=== PATIENT | female | born 1990 | race Caucasian/White ===

== ENCOUNTER 2019-06-18 18:18 | Inpatient (IN) | payer MEDICAID, OTHER ==
[2019-06-18] MEDS ORDERED: SODIUM CHLORIDE 0.9% 1,000 ML IV STA (18:36)
--- NOTE | 2019-06-18 18:46 | ED ---
Overdose HPI - General Chief Complaint: Overdose Stated Complaint: Suicidal Time Seen by Provider: 06/18/19 18:20 - History of Present Illness Initial Comments: 29-year-old female patient with past medical history significant for anorexia nervosa presents to the emergency department today for evaluation after overdosing on several of her medications. Patient states she intentionally took these medications because she wanted to "feel numb". Patient does admit to suicidal ideation. Patient denies drinking alcohol. Admits to occasionally smoking marijuana. She states she is currently feeling nauseated and has a headache. She denies any other injuries or symptoms. Patient states she has been admitted to a mental health facility in the past, but for her eating disorder. Patient denies any recent rash, fever, chills, cough, shortness of breath, chest pain, abdominal pain, diarrhea, constipation, back pain, numbness, tingling, dizziness, weakness, hematuria, dysuria, urinary urgency, urinary frequency, visual changes, or any other complaints. - Related Data Allergies Allergy/AdvReac Type Severity Reaction Status Date / Time yeast, dried Allergy Rash/Hives Verified 06/18/19 19:12 Review of Systems ROS Statement: Those systems with pertinent positive or pertinent negative responses have been documented in the HPI. ROS Other: All systems not noted in ROS Statement are negative. General Exam General appearance: alert, in no apparent distress, other (This is a well- developed, well-nourished adult female patient in no acute distress. ) Eye exam: Present: normal appearance, PERRL, EOMI. Absent: scleral icterus, conjunctival injection, periorbital swelling ENT exam: Present: normal exam, normal oropharynx, mucous membranes moist Respiratory exam: Present: normal lung sounds bilaterally. Absent: respiratory distress, wheezes, rales, rhonchi, stridor Cardiovascular Exam: Present: regular rate, normal rhythm, normal heart sounds. Absent: systolic murmur, diastolic murmur, rubs, gallop, clicks GI/Abdominal exam: Present: soft, normal bowel sounds. Absent: distended, tenderness, guarding, rebound, rigid Neurological exam: Present: alert, oriented X3, CN II-XII intact Psychiatric exam: Present: anxious, suicidal ideation, other (Tearful). Absent: homicidal ideation Skin exam: Present: warm, dry, intact, normal color. Absent: rash Course Vital Signs 06/18/19 06/18/19 06/18/19 18:30 19:31 20:54 Temperature 98.1 F Pulse Rate 86 85 87 Respiratory 20 16 16 Rate Blood Pressure 125/74 105/68 103/60 O2 Sat by Pulse 98 98 98 Oximetry Medical Decision Making - Medical Decision Making 29-year-old female patient presented to the emergency department after taking several doses of each of her medications in attempt to kill herself. Physical examination is unremarkable. She is neurologically intact with no deficits. EKG showed normal sinus rhythm, with the controls contacted they recommended repeating EKG in 2-3 hours. Repeat EKG was normal as well. She was evaluated by emergency psychiatric services. She'll be transferred to the mental health unit for further evaluation and treatment. - Lab Data Result diagrams: 06/18/19 19:00 06/18/19 19:00 Lab Results 06/18/19 06/18/19 06/18/19 Range/Units 19:00 19:00 19:06 WBC 8.6 (3.8-10.6) k/uL RBC 4.96 (3.80-5.40) m/uL Hgb 14.3 (11.4-16.0) gm/dL Hct 44.4 (34.0-46.0) % MCV 89.5 (80.0-100.0) fL MCH 28.9 (25.0-35.0) pg MCHC 32.3 (31.0-37.0) g/dL RDW 14.2 (11.5-15.5) % Plt Count 412 (150-450) k/uL Neutrophils % 58 % Lymphocytes % 34 % Monocytes % 4 % Eosinophils % 2 % Basophils % 1 % Neutrophils # 5.0 (1.3-7.7) k/uL Lymphocytes # 2.9 (1.0-4.8) k/uL Monocytes # 0.3 (0-1.0) k/uL Eosinophils # 0.2 (0-0.7) k/uL Basophils # 0.1 (0-0.2) k/uL Sodium 139 (137-145) mmol/L Potassium 4.2 (3.5-5.1) mmol/L Chloride 106 (98-107) mmol/L Carbon Dioxide 26 (22-30) mmol/L Anion Gap 7 mmol/L BUN 11 (7-17) mg/dL Creatinine 0.84 (0.52-1.04) mg/dL Est GFR (CKD-EPI)AfAm >90 (>60 ml/min/1.73 sqM) Est GFR (CKD-EPI)NonAf >90 (>60 ml/min/1.73 sqM) Glucose 88 (74-99) mg/dL Calcium 9.1 (8.4-10.2) mg/dL Total Bilirubin 0.2 (0.2-1.3) mg/dL AST 30 (14-36) U/L ALT 23 (4-34) U/L Alkaline Phosphatase 99 (38-126) U/L Total Protein 7.5 (6.3-8.2) g/dL Albumin 4.2 (3.5-5.0) g/dL Urine Color Yellow Urine Appearance Cloudy H (Clear) Urine pH 7.0 (5.0-8.0) Ur Specific [place] 1.007 (1.001-1.035) Urine Protein Negative (Negative) Urine Glucose (UA) Negative (Negative) Urine Ketones Negative (Negative) Urine Blood Negative (Negative) Urine Nitrite Negative (Negative) Urine Bilirubin Negative (Negative) Urine Urobilinogen <2.0 (<2.0) mg/dL Ur Leukocyte Esterase Large H (Negative) Urine RBC 2 (0-5) /hpf Urine WBC 55 H (0-5) /hpf Ur Squamous Epith Cells 10 H (0-4) /hpf Urine Bacteria Many H (None) /hpf Urine Mucus Occasional H (None) /hpf Urine HCG, Qual (Not Detectd) Salicylates <1.0 mg/dL Urine Opiates Screen Not Detected (NotDetected) Ur Oxycodone Screen Not Detected (NotDetected) Urine Methadone Screen Not Detected (NotDetected) Ur Propoxyphene Screen Not Detected (NotDetected) Acetaminophen <10.0 ug/mL Ur Barbiturates Screen Not Detected (NotDetected) U Tricyclic Antidepress Not Detected (NotDetected) Ur Phencyclidine Scrn Not Detected (NotDetected) Ur Amphetamines Screen Not Detected (NotDetected) U Methamphetamines Scrn Not Detected (NotDetected) U Benzodiazepines Scrn Not Detected (NotDetected) Urine Cocaine Screen Not Detected (NotDetected) U Marijuana (THC) Screen Detected H (NotDetected) Serum Alcohol <10 mg/dL 06/18/19 Range/Units 19:06 WBC (3.8-10.6) k/uL RBC (3.80-5.40) m/uL Hgb (11.4-16.0) gm/dL Hct (34.0-46.0) % MCV (80.0-100.0) fL MCH (25.0-35.0) pg MCHC (31.0-37.0) g/dL RDW (11.5-15.5) % Plt Count (150-450) k/uL Neutrophils % % Lymphocytes % % Monocytes % % Eosinophils % % Basophils % % Neutrophils # (1.3-7.7) k/uL Lymphocytes # (1.0-4.8) k/uL Monocytes # (0-1.0) k/uL Eosinophils # (0-0.7) k/uL Basophils # (0-0.2) k/uL Sodium (137-145) mmol/L Potassium (3.5-5.1) mmol/L Chloride (98-107) mmol/L Carbon Dioxide (22-30) mmol/L Anion Gap mmol/L BUN (7-17) mg/dL Creatinine (0.52-1.04) mg/dL Est GFR (CKD-EPI)AfAm (>60 ml/min/1.73 sqM) Est GFR (CKD-EPI)NonAf (>60 ml/min/1.73 sqM) Glucose (74-99) mg/dL Calcium (8.4-10.2) mg/dL Total Bilirubin (0.2-1.3) mg/dL AST (14-36) U/L ALT (4-34) U/L Alkaline Phosphatase (38-126) U/L Total Protein (6.3-8.2) g/dL Albumin (3.5-5.0) g/dL Urine Color Urine Appearance (Clear) Urine pH (5.0-8.0) Ur Specific [place] (1.001-1.035) Urine Protein (Negative) Urine Glucose (UA) (Negative) Urine Ketones (Negative) Urine Blood (Negative) Urine Nitrite (Negative) Urine Bilirubin (Negative) Urine Urobilinogen (<2.0) mg/dL Ur Leukocyte Esterase (Negative) Urine RBC (0-5) /hpf Urine WBC (0-5) /hpf Ur Squamous Epith Cells (0-4) /hpf Urine Bacteria (None) /hpf Urine Mucus (None) /hpf Urine HCG, Qual Not Detected (Not Detectd) Salicylates mg/dL Urine Opiates Screen (NotDetected) Ur Oxycodone Screen (NotDetected) Urine Methadone Screen (NotDetected) Ur Propoxyphene Screen (NotDetected) Acetaminophen ug/mL Ur Barbiturates Screen (NotDetected) U Tricyclic Antidepress (NotDetected) Ur Phencyclidine Scrn (NotDetected) Ur Amphetamines Screen (NotDetected) U Methamphetamines Scrn (NotDetected) U Benzodiazepines Scrn (NotDetected) Urine Cocaine Screen (NotDetected) U Marijuana (THC) Screen (NotDetected) Serum Alcohol mg/dL - EKG Data -: EKG Interpreted by Me EKG Comments: EKG obtained at 1856 shows normal sinus rhythm with sinus arrhythmia. Ventricular rate is 83, P return of a 160, QRS duration 70, QT 348, QTC 408. No evidence of ST elevation or depression. EKG #2 is obtained at 2104 shows normal sinus rhythm with a ventricular rate of 75,. Interval 160, QRS duration 64, QT 370, QTC 413. No evidence of ST elevation or depression. Disposition Clinical Impression: Suicidal ideation Disposition: TRANSFER TO PSYCH HOSP/UNIT Condition: Serious Referrals: Kenneth Valenzuela DO [Primary Care Provider] - 1-2 days - Out of Hospital Transfer - Req. Specs Out of Hospital Transfer - Requested Specifics: Psychiatric Non-ICU ([facility] health unit)
[2019-06-18 19:20] LABS: Basophils # (A) 0.1 k/uL (0-0.2); Basophils % (A) 1 %; Eosinophils # (A) 0.2 k/uL (0-0.7); Eosinophils % (A) 2 %; HCT 44.4 % (34.0-46.0); HGB 14.3 gm/dL (11.4-16.0); Lymphocytes # (A) 2.9 k/uL (1.0-4.8); Lymphocytes % (A) 34 %; MCH 28.9 pg (25.0-35.0); MCHC 32.3 g/dL (31.0-37.0); MCV 89.5 fL (80.0-100.0); Mean Platelet Volume 6.7; Monocytes # (A) 0.3 k/uL (0-1.0); Monocytes % (A) 4 %; Neutrophils % (A) 58 %; Platelet Count 412 k/uL (150-450); RBC 4.96 m/uL (3.80-5.40); RDW 14.2 % (11.5-15.5); WBC 8.6 k/uL (3.8-10.6)
[2019-06-18] MEDS ORDERED: ONDANSETRON 4 MG/2 ML VIAL IVP STA (19:29)
[2019-06-18 19:34] LABS: Amphetamine Screen,Urine Not Detected (NotDetected); Barbiturate Screen,Urine Not Detected (NotDetected); Benzodiazepines Screen,Urine Not Detected (NotDetected); Cocaine Screen,Urine Not Detected (NotDetected); Methadone Screen, Urine Not Detected (NotDetected); Opiate Screen,Urine Not Detected (NotDetected); Oxycodone Screen, Urine Not Detected (NotDetected); Phencyclidine Screen,Urine Not Detected (NotDetected); Tricyclic Antidepressant,Urine Not Detected (NotDetected); Urn Cannabinoid Scrn Detected (NotDetected)
[2019-06-18 19:36] LABS: Appearance,Urine Cloudy (Clear); Bacteria,Urine Many /hpf; Bilirubin,Urine Negative (Negative); Blood,Urine Negative (Negative); Color,Urine Yellow; Glucose,Urine (UA) Negative (Negative); Ketones,Urine Negative (Negative); Leukocyte Esterase,Urine Large (Negative); Mucus,Urine Occasional /hpf; Nitrite,Urine Negative (Negative); Protein,Urine Negative (Negative); RBC,Urine 2 /hpf (0-5); Specific Gravity,Urine 1.007 (1.001-1.035); Squamous Epithelial Cell,Urine 10 /hpf (0-4); Urobilinogen,Urine <2.0 mg/dL (<2.0); WBC,Urine 55 /hpf (0-5)
[2019-06-18 19:41] LABS: ALT 23 U/L (4-34); AST 30 U/L (14-36); Acetaminophen <10.0 ug/mL; African American GFR (CKD) >90 (>60 ml/min/1.73 sqM); Albumin 4.2 g/dL (3.5-5.0); Alcohol <10 mg/dL; Alkaline Phosphatase 99 U/L (38-126); Anion Gap 7 mmol/L; Blood Urea Nitrogen 11 mg/dL (7-17); Calcium 9.1 mg/dL (8.4-10.2); Carbon Dioxide 26 mmol/L (22-30); Chloride 106 mmol/L (98-107); Glucose 88 mg/dL (74-99); Non-African American GFR(CKD) >90 (>60 ml/min/1.73 sqM); Potassium 4.2 mmol/L (3.5-5.1); Salicylate <1.0 mg/dL; Sodium 139 mmol/L (137-145); Total Bilirubin 0.2 mg/dL (0.2-1.3); Total Protein 7.5 g/dL (6.3-8.2)
[2019-06-18] MEDS ORDERED: MAG HYDROX/AL HYDROX/SIMETH 30 ML CUP PO PRN (22:25)
[2019-06-18] MEDS ORDERED: MAGNESIUM HYDROXIDE 2,400 MG/10 ML CUP PO PRN (22:25)
[2019-06-18] MEDS ORDERED: CYCLOBENZAPRINE 10 MG TAB PO PRN (22:30)
[2019-06-19] MEDS: ACETAMINOPHEN TAB 325 MG TAB PO PRN (03:38)
[2019-06-19] MEDS: lamoTRIgine 100 MG TAB PO SCH ×2 (07:58→22:07)
[2019-06-19] MEDS: VENLAFAXINE HCL 37.5 MG TAB PO SCH (07:59)
[2019-06-19] MEDS: NICOTINE 14MG/24HR PATCH TRANSDERM SCH (10:19)
--- NOTE | 2019-06-19 14:57 | P.HP ---
Psychiatric H&P - . H&P Date: 06/19/19 History & Physical: Allergies Allergy/AdvReac Type Severity Reaction Status Date / Time yeast, dried Allergy Rash/Hives Verified 06/18/19 23:27 Vital Signs Temp 98.2 F 06/19/19 03:46 Pulse 106 H 06/19/19 03:46 Resp 14 06/19/19 03:46 BP 110/63 06/19/19 03:46 Pulse Ox 96 06/18/19 23:30 Intake & Output 06/18/19 06/19/19 06/19/19 18:59 06:59 18:59 Weight 44.452 kg 44.6 kg 44.6 kg Laboratory Last Values WBC 8.6 k/uL (3.8-10.6) 06/18/19 19:00 RBC 4.96 m/uL (3.80-5.40) 06/18/19 19:00 Hgb 14.3 gm/dL (11.4-16.0) 06/18/19 19:00 Hct 44.4 % (34.0-46.0) 06/18/19 19:00 MCV 89.5 fL (80.0-100.0) 06/18/19 19:00 MCH 28.9 pg (25.0-35.0) 06/18/19 19:00 MCHC 32.3 g/dL (31.0-37.0) 06/18/19 19:00 RDW 14.2 % (11.5-15.5) 06/18/19 19:00 Plt Count 412 k/uL (150-450) 06/18/19 19:00 Neutrophils % 58 % 06/18/19 19:00 Lymphocytes % 34 % 06/18/19 19:00 Monocytes % 4 % 06/18/19 19:00 Eosinophils % 2 % 06/18/19 19:00 Basophils % 1 % 06/18/19 19:00 Neutrophils # 5.0 k/uL (1.3-7.7) 06/18/19 19:00 Lymphocytes # 2.9 k/uL (1.0-4.8) 06/18/19 19:00 Monocytes # 0.3 k/uL (0-1.0) 06/18/19 19:00 Eosinophils # 0.2 k/uL (0-0.7) 06/18/19 19:00 Basophils # 0.1 k/uL (0-0.2) 06/18/19 19:00 Sodium 139 mmol/L (137-145) 06/18/19 19:00 Potassium 4.2 mmol/L (3.5-5.1) 06/18/19 19:00 Chloride 106 mmol/L (98-107) 06/18/19 19:00 Carbon Dioxide 26 mmol/L (22-30) 06/18/19 19:00 Anion Gap 7 mmol/L 06/18/19 19:00 BUN 11 mg/dL (7-17) 06/18/19 19:00 Creatinine 0.84 mg/dL (0.52-1.04) 06/18/19 19:00 Est GFR (CKD-EPI)AfAm >90 (>60 ml/min/1.73 sqM) 06/18/19 19:00 Est GFR (CKD-EPI)NonAf >90 (>60 ml/min/1.73 sqM) 06/18/19 19:00 Glucose 88 mg/dL (74-99) 06/18/19 19:00 Calcium 9.1 mg/dL (8.4-10.2) 06/18/19 19:00 Total Bilirubin 0.2 mg/dL (0.2-1.3) 06/18/19 19:00 AST 30 U/L (14-36) 06/18/19 19:00 ALT 23 U/L (4-34) 06/18/19 19:00 Alkaline Phosphatase 99 U/L (38-126) 06/18/19 19:00 Total Protein 7.5 g/dL (6.3-8.2) 06/18/19 19:00 Albumin 4.2 g/dL (3.5-5.0) 06/18/19 19:00 Triglycerides 108 mg/dL (<150) 06/18/19 19:00 Cholesterol 233 mg/dL (<200) H 06/18/19 19:00 LDL Cholesterol, Calc 86 mg/dL (0-99) 06/18/19 19:00 HDL Cholesterol 125 mg/dL (40-60) H 06/18/19 19:00 TSH 1.740 mIU/L (0.465-4.680) 06/18/19 19:00 Urine Color Yellow 06/18/19 19: Urine Appearance Cloudy (Clear) H 06/18/19 19:06 Urine pH 7.0 (5.0-8.0) 06/18/19 19:06 Ur Specific [place] 1.007 (1.001-1.035) 06/18/19 19:06 Urine Protein Negative (Negative) 06/18/19 19: Urine Glucose (UA) Negative (Negative) 06/18/19 19: Urine Ketones Negative (Negative) 06/18/19 19: Urine Blood Negative (Negative) 06/18/19 19: Urine Nitrite Negative (Negative) 06/18/19 19: Urine Bilirubin Negative (Negative) 06/18/19 19: Urine Urobilinogen <2.0 mg/dL (<2.0) 06/18/19 19:06 Ur Leukocyte Esterase Large (Negative) H 06/18/19 19:06 Urine RBC 2 /hpf (0-5) 06/18/19 19: Urine WBC 55 /hpf (0-5) H 06/18/19 19: Ur Squamous Epith Cells 10 /hpf (0-4) H 06/18/19 19:06 Urine Bacteria Many /hpf (None) H 06/18/19 19: Urine Mucus Occasional /hpf (None) H 06/18/19 19:06 Urine HCG, Qual Not Detected (Not Detectd) 06/18/19 19: Salicylates <1.0 mg/dL 06/18/19 19:00 Urine Opiates Screen Not Detected (NotDetected) 06/18/19 19:06 Ur Oxycodone Screen Not Detected (NotDetected) 06/18/19 19:06 Urine Methadone Screen Not Detected (NotDetected) 06/18/19 19:06 Ur Propoxyphene Screen Not Detected (NotDetected) 06/18/19 19: Acetaminophen <10.0 ug/mL 06/18/19 19:00 Ur Barbiturates Screen Not Detected (NotDetected) 06/18/19 19:06 U Tricyclic Antidepress Not Detected (NotDetected) 06/18/19 19:06 Ur Phencyclidine Scrn Not Detected (NotDetected) 06/18/19 19:06 Ur Amphetamines Screen Not Detected (NotDetected) 06/18/19 19:06 U Methamphetamines Scrn Not Detected (NotDetected) 06/18/19 19:06 U Benzodiazepines Scrn Not Detected (NotDetected) 06/18/19 19:06 Urine Cocaine Screen Not Detected (NotDetected) 06/18/19 19:06 U Marijuana (THC) Screen Detected (NotDetected) H 06/18/19 19:06 Serum Alcohol <10 mg/dL 06/18/19 19:00 06/19/19 14:45 IDENTIFYING DATA: Patient is a 29-year-old female with a history of anorexia and depression who currently lives in a house with her parents and works as a nanny has no kids and is HPI: Patient presented to the hospital yesterday after an overdose on her medications. [place] states that she impulsively took her medications in a suicide attempt. Patient states that she fell asleep in the car and a utility helicopter repairer found her and brought her in the hospital. She stated that she did not want to live anymore. She states that she's been noted with depression and feeling hopeless and overwhelmed at home. She states that she did feel like this since [place]. She was tearful and had a soft tone of voice and appeared to be guarded/evasive during the conversation. She spoke about "failing my parents" and stating that her sister has been "doing better than me". She feels that she is a big "screw up" in life and has been feeling hopeless. She states that she has been dealing with an eating disorder anorexia for 10 years now and states that "people don't understand me". She also spoke about having high anxiety. She states that she slept well last night. Patient also claimed that she's been caught stealing 2 times recently and had to go to court and felt that this may triggered her suicide attempt. She states that she has been compliant with her medications. Patient denies any suicidal or homicidal ideations intent or plan at this time. At this time patient denies any auditory or visual hallucinations. Patient denies any flight of ideas racing thoughts and increased in goal directed behavior. Patient admits to using marijuana daily and also smoking cigarettes daily. She states that she used to drink alcohol heavily however quit 3 years ago. PAST PSYCHIATRIC HISTORY: Patient states that she has history of anorexia nervosa depression and anxiety and was following up with Dr. Willingham for the past 3 years. She states that she has been on Klonopin and Effexor and Lamictal. She claims that this is her first inpatient psychiatric admission. She denies any suicide attempts in the past before this. PMH:denies ALLERGIES: as per EMR CHEMICAL DEPENDENCY HISTORY: as per HPI FAMILY PSYCHIATRIC/SUBSTANCE USE HISTORY: States that her dad has bipolar disorder, sister has anxiety and mother has depression. SOCIAL HISTORY: Patient was born and raised in [facility] and states that she was previously enrolled in school and almost complete her associate's degree. She states that at this time she is currently and living in a house with her parents and works as a nanny has no kids. MENTAL STATUS EXAM: General Appearance: Patient appears to be stated age is alert, difficult to redirect and irritable. Patient appears to have poor hygiene and grooming. Behavior: Patient is seated without any agitated behavior. Irritable tone. Speech: Patient's speech is fluent and nonpressured. Loud at times. Mood/Affect: Patient reports their mood is depressed, affect is congruent and constricted. Suicidality/Homicidality: Patient denies having any homicidal ideation intent or plan. Denies any suicidal ideations intent or plan Perceptions: Patient denies any visual hallucinations and denies any auditory hallucinations Though content/process: Goal oriented, logical. Catastrophizing. Preoccupied with her stressors. Memory and concentration: AOX3, grossly intact for the purposes of this session. Can spell "WORLD" backwards Judgment and insight: poor STRENGTHS/WEAKNESSES: strength is that patient is resilient. Weakness is that patient has poor judgment and has poor insight INTELLECT: average IMPRESSIONS: major depressive disorder, recurrent, severe, without psychotic features Anxiety disorder unspecified Anorexia nervosa Cannabis abuse Nicotine dependence PLAN: -Patient is admitted under voluntary status to MHU for stabilization of psychiatric symptoms and safety. Patient signed adult voluntary form and medication consent and is placed in patient's chart. -Medications : Will start patient on Effexor XR 37.5 mg daily for anxiety/mood. Restarted Lamictal 100 mg twice a day for mood stabilization/depression. Restarted Klonopin at home dose. -Geodon PRN for agitation/aggression -Patient was informed of the risks, benefits and side effects of the medication and patient verbally consented to taking the medications. -Internal Medicine consult to perform medical evaluation and physical. Consult dietary/forestry aide this patient is refusing to eat. -NRT - nicotine patch -SW on board for discharge planning. Encourage patient to participate in groups to work on coping skills. 06/19/19 14:46 06/19/19 14:55 06/19/19 14:56
[2019-06-19] MEDS: ZIPRASIDONE 20 MG VIAL IM PRN (18:27)
[2019-06-20] MEDS: VENLAFAXINE HCL 37.5 MG TAB PO SCH (09:46)
[2019-06-20] MEDS: ACETAMINOPHEN TAB 325 MG TAB PO PRN (09:46)
[2019-06-20] MEDS: NICOTINE 14MG/24HR PATCH TRANSDERM SCH (09:46)
[2019-06-20] MEDS: lamoTRIgine 100 MG TAB PO SCH ×2 (09:46→21:03)
--- NOTE | 2019-06-20 10:22 | P.PN ---
Progress Note - Text Progress Note Date: 06/20/19 Interval History: Patient was seen laying down in her bed and was directable and agreeable to sp felicianok with teletypewriter installer in the office. Patient continues to be irritable and argumentative with teletypewriter installer along with a hostile. Patient was tearful at times and continues to state that she does not want to live however when asked specifically about suicidal thoughts and any plans patient denied. She continues to be superficial and guarded/evasive. When teletypewriter installer asked about patient's mood she states that "the same" and continues a poor eye contact. She states that she did go to 1 group so far. She continues to state that she does not want any medication changes and asked psychiatrist to speak with Dr. Willingham. Patient continues to refuse to eat her meals. At this time patient denies any suicidal or homical ideations, intent or plan. Patient denies any auditory, visual hallucinations and denies any paranoia or delusions. Patient denies any side effects from the medications and has been compliant with meds. Mental Status Exam: General Appearance: Patient appears to be stated age is alert, difficult to redirect and irritable/argumentative. Patient appears to have poor hygiene and grooming. Behavior: Patient is seated without any agitated behavior. Irritable/argumentative tone. Speech: Patient's speech is fluent and nonpressured. Loud at times. Mood/Affect: Patient reports their mood is depressed, affect is congruent and constricted. Suicidality/Homicidality: Patient denies having any homicidal ideation intent or plan. Denies any suicidal ideations intent or plan Perceptions: Patient denies any visual hallucinations and denies any auditory hallucinations Though content/process: Goal oriented, logical. Catastrophizing. Preoccupied with her stressors. Memory and concentration: AOX3, grossly intact for the purposes of this session. Can spell "WORLD" backwards Judgment and insight: poor Assessment Major depressive disorder, recurrent, severe, without psychotic features Anxiety disorder unspecified Anorexia nervosa Cannabis abuse Nicotine dependence Plan: -Patient continues to meet criteria for inpatient psychiatric admission for symptom stabilization and safety. Patient has signed adult voluntary form however has not signed medication consent and was placed in patient's chart. -Medications: We'll increase Effexor XR 75 mg daily for anxiety/mood. Continue with Lamictal 100 mg twice a day for mood stabilization/depression. We'll consider titrating patient off Klonopin and switching with either Seroquel or Zyprexa. -When necessary [place] for agitation/aggression. -Consult dietary/lead burner helper this patient is refusing to eat. -Will order comprehensive metabolic panel tomorrow as patient is continuing to refuse to eat. -NRT - nicotine patch -SW on board for discharge planning. Encouraged the patient to participate in milieu. We'll attempt to speak with Dr. Willingham today about patient's care and medications.
[2019-06-20 10:29] LABS: Hemoglobin A1C 5.1 % (4.0-6.0)
[2019-06-21] MEDS: VENLAFAXINE HCL ER 75 MG CAP PO SCH (08:46)
[2019-06-21] MEDS: NICOTINE 14MG/24HR PATCH TRANSDERM SCH (08:47)
[2019-06-21] MEDS: lamoTRIgine 100 MG TAB PO SCH ×2 (08:47→20:31)
[2019-06-21] MEDS ORDERED: BENZOCAINE/MENTHOL LOZENG 1 EACH LOZENGE MUCOUS MEM PRN (09:46)
[2019-06-21 09:55] LABS: ALT 19 U/L (4-34); African American GFR (CKD) >90 (>60 ml/min/1.73 sqM); Albumin 4.4 g/dL (3.5-5.0); Anion Gap 8 mmol/L; Blood Urea Nitrogen 12 mg/dL (7-17); Calcium 9.3 mg/dL (8.4-10.2); Carbon Dioxide 26 mmol/L (22-30); Chloride 104 mmol/L (98-107); Glucose 93 mg/dL (74-99); Non-African American GFR(CKD) >90 (>60 ml/min/1.73 sqM); Sodium 138 mmol/L (137-145); Total Bilirubin 0.7 mg/dL (0.2-1.3); Total Protein 8.2 g/dL (6.3-8.2)
[2019-06-21 09:58] LABS: AST 40 U/L (14-36); Alkaline Phosphatase 90 U/L (38-126); Potassium 5.7 mmol/L (3.5-5.1)
--- NOTE | 2019-06-21 10:19 | P.PN ---
Progress Note - Text Progress Note Date: 06/21/19 Interval History: Patient was seen in her room and was directable and agreeable to speak with wr iter in the office. Patient appeared to be calmer this morning and more talkative. She spoke about in detail more of her struggles with her eating disorder and difficulties eating around other people, counting calories in dealing with her negative self image. She spoke about her body weight and body image. She also spoke about her experiences with different eating disorder treatment programs and how she only gained benefit from one in [place]. Patient was tearful at times however states that she understands that she needs to be in the hospital at this time and claims that her mood has been gradually improving however claims that she still depressed. She states that she has been attempting to go to groups and talking to different people on the unit more. She also spoke about eating small quantities of food yesterday and claims that she did not vomit/purge. At this time patient denies any suicidal or homical ideations, intent or plan. Patient denies any auditory, visual hallucinations and denies any paranoia or delusions. Patient denies any side effects from the medications and has been compliant with meds. Mental Status Exam: General Appearance: Patient appears to be stated age is thin/frail, alert, more cooperative today. Patient appears to have improving hygiene and grooming. Behavior: Patient is seated without any agitated behavior. More cooperative today. Speech: Patient's speech is fluent and nonpressured. Soft tone. Mood/Affect: Patient reports their mood is depressed, affect is congruent and constricted. Suicidality/Homicidality: Patient denies having any homicidal ideation intent or plan. Denies any suicidal ideations intent or plan Perceptions: Patient denies any visual hallucinations and denies any auditory hallucinations Though content/process: Goal oriented, logical. Preoccupied with her stressors. Memory and concentration: AOX3, grossly intact for the purposes of this session. Can spell "WORLD" backwards Judgment and insight: poor, mildly improving. Assessment Major depressive disorder, recurrent, severe, without psychotic features Anxiety disorder unspecified Anorexia nervosa Cannabis abuse Nicotine dependence Plan: -Patient continues to meet criteria for inpatient psychiatric admission for symptom stabilization and safety. Patient has signed adult voluntary form however has not signed medication consent and was placed in patient's chart. -Medications: We'll continue with Effexor XR 75 mg daily for anxiety/mood. Continue with Lamictal 100 mg twice a day for mood stabilization/depression. Can continue with Klonopin 0.5 mg twice a day when necessary for anxiety. -When necessary Geodon for agitation/aggression. -Consult dietary/blade changer, patient claims that she is planning on eating small quantities of fruit, soup and salad. -Awaiting competence of panel from this morning. -NRT - nicotine patch -SW on board for discharge planning. Encouraged the patient to participate in milieu. Account Services Specialist spoke with Dr. Willingham over the phone yesterday for more collateral history and medication history patient who agrees with current plan. Account Services Specialist and manager social media also spoke with patient's mother over the phone who mentioned that patient has gone to treatment at [facility] in the past which is a eating disorder clinic and got more information about patient and mother's concern. At this time patient declined sending packet to [facility].
[2019-06-21] MEDS: clonazePAM 0.5 MG TAB PO PRN ×4 (12:10→18:01)
[2019-06-21] MEDS: ZIPRASIDONE 20 MG VIAL IM PRN (12:23)
[2019-06-21] MEDS ORDERED: SODIUM POLYSTYRENE SULFONATE 15 GM/60 ML BOTTLE PO ONE (13:00)
[2019-06-21 18:28] LABS: African American GFR (CKD) >90 (>60 ml/min/1.73 sqM); Anion Gap 2 mmol/L; Blood Urea Nitrogen 11 mg/dL (7-17); Calcium 8.9 mg/dL (8.4-10.2); Carbon Dioxide 32 mmol/L (22-30); Chloride 104 mmol/L (98-107); Glucose 77 mg/dL (74-99); Non-African American GFR(CKD) >90 (>60 ml/min/1.73 sqM); Potassium 4.8 mmol/L (3.5-5.1); Sodium 138 mmol/L (137-145)
[2019-06-22] MEDS: VENLAFAXINE HCL ER 75 MG CAP PO SCH (09:12)
[2019-06-22] MEDS: lamoTRIgine 100 MG TAB PO SCH ×2 (09:12→20:37)
[2019-06-22] MEDS: SIMETHICONE 80 MG CHEWABLE PO PRN ×2 (09:13→21:02)
--- NOTE | 2019-06-22 09:37 | P.PN ---
Progress Note - Text Progress Note Date: 06/22/19 Interval History: Patient was seen wandering the hallways and was directable and agreeable to sp eak with contract writer in the office. Patient appeared to be calmer this morning however was tearful when speaking a contract writer. She states that she had a "stressful day" yesterday and states that she got agitated after hearing bad news from her father over the phone. She stated that her father told her that the store that she stole candy from was going to prosecute her and that she may be going to nursing home after she is discharged. She continued to speak about food and feeling in control. She states that she did eat some oatmeal this morning which she is proud of. She also continues to be hesitant on which program she would like to go to either in [place] or [place]. She states that her anxiety continues to be elevated and states that she's had panic attacks since being in the hospital. She states that she has been attempting to go to groups. At this time patient denies any suicidal or homical ideations, intent or plan. Patient denies any auditory, visual hallucinations and denies any paranoia or delusions. Patient denies any side effects from the medications and has been compliant with meds. Mental Status Exam: General Appearance: Patient appears to be stated age is thin/frail, alert, more cooperative today yet tearful. Patient appears to have improving hygiene and grooming. Behavior: Patient is seated without any agitated behavior. More cooperative today yet tearful. Speech: Patient's speech is fluent and nonpressured. Mood/Affect: Patient reports their mood is depressed/anxious, affect is congruent and constricted. Suicidality/Homicidality: Patient denies having any homicidal ideation intent or plan. Denies any suicidal ideations intent or plan Perceptions: Patient denies any visual hallucinations and denies any auditory hallucinations Though content/process: Goal oriented, logical. Preoccupied with her stressors and food. Memory and concentration: AOX3, grossly intact for the purposes of this session. Can spell "WORLD" backwards Judgment and insight: poor, mildly improving. Assessment Major depressive disorder, recurrent, severe, without psychotic features Anxiety disorder unspecified, rule out panic disorder Anorexia nervosa Cannabis abuse Nicotine dependence Plan: -Patient continues to meet criteria for inpatient psychiatric admission for symptom stabilization and safety. Patient has signed adult voluntary form however has not signed medication consent and was placed in patient's chart. -Medications: We'll continue with Effexor XR 75 mg daily for anxiety/mood. Continue with Lamictal 100 mg twice a day for mood stabilization/depression. Can continue with Klonopin 0.5 mg twice a day when necessary for anxiety. Added BuSpar 7.5 mg twice a day for anxiety. -When necessary Geodon for agitation/aggression. -Consult dietary/svp operations, patient claims that she is planning on eating small quantities of fruit, soup and salad. -Patient's sodium was 5.7 yesterday however improved to 4.8 today. Placed on a renal diet. -NRT - nicotine patch -SW on board for discharge planning. Encouraged the patient to participate in milieu. At this time patient would either like to go to the eating disorders program and [place] or in [place], we'll attempt to send packet today and get more information.
[2019-06-22] MEDS: busPIRone HCl 5 MG TAB PO SCH ×2 (09:45→20:37)
[2019-06-22] MEDS: clonazePAM 0.5 MG TAB PO PRN ×2 (12:07→17:52)
[2019-06-22 13:10] VITALS: BMI 17.0
[2019-06-22] MEDS: ZIPRASIDONE 20 MG VIAL IM PRN (13:12)
--- NOTE | 2019-06-22 22:27 | P.CONS ---
History of Present Illness - Reason for Consult Consult date: 06/22/19 Medical management Requesting physician: Junior Padilla - Chief Complaint Overdose - History of Present Illness Consultation: This is a 29-year-old patient of Dr. Dorene Valenzuela. Has a diagnosis of bipolar and anorexia. Patient had been feeling rather depressed and took overdose of pills with intention of killing herself was admitted here. Patient is very selective about eating. Up much of an appetite. Does smoke about half a pack a day does marijuana about 2 joints a day. As a bowel movement every other day. No nausea vomiting. No heartburn. Denies any pain. Does work as a nanny sometimes. Lives with her parents. Denies use of any other drugs. (I was away from June 17 through June 20.-Staff informed me the unit had consulted sounds physicians initially and then it was changed over to myself-I was informed about the consultation this morning) Review of systems: GEN.: None EYES: None HEENT: None NECK: None RESPIRATORY: None CARDIOVASCULAR: None GASTROINTESTINAL: None GENITOURINARY: None MUSCULOSKELETAL: None LYMPHATICS: None HEMATOLOGICAL: None PSYCHIATRY: Anxious] NEUROLOGICAL: None Past medical history to include: Bipolar disorder, anorexia Social history: Lives with her parents. Does smoke half a pack a cigarettes a day. Does mar ijuana about 2 joints a day. Sometimes works as a nanny Family history: Reviewed, noncontributory to presentation Physical examination: VITAL SIGNS: 97.8, 80, 14, blood pressure 112/7197% on room air GENERAL: BMI 17, sitting up, comfortable well groomed. Eyebrows are done, and highlights in the hair, decreased body fat EYES: Pupils equal. Conjunctiva normal. HEENT: External appearance of nose and ears normal, oral cavity grossly normal. NECK: JVD not raised; masses not palpable. HEART: First and second heart sounds are normal; no edema. LUNGS: Respiratory rate normal; clear to auscultation. ABDOMEN: Soft, nontender, liver spleen not palpable, no masses palpable. PSYCH: Alert and oriented x3; mood and affect anxiousl. NEUROLOGICAL: Cranial nerves grossly intact; no facial asymmetry, power and sensation grossly intact. LYMPHATICS: No lymph nodes palpable in the axilla and neck INVESTIGATIONS, reviewed in the clinical context: White count is 8.6 hemoglobin 14.3 potassium 4.8 creatinine 0.77 TSH 1.7 LDL 86 Contaminated urine sample Urine-hCG negative Urine drug screen positive for marijuana Assessment: -Chronic nicotine dependence patient's cigarette smoker -Recreational marijuana use -Anorexia -Mild protein calorie malnutrition Plan: Patient advised against use of marijuana and smoking. Other medication treatment plan is to continue. Patient should follow up with the psychologist as an outpatient. Thank you Dr. padilla Past Medical History Smoking Status: Current every day smoker Medications and Allergies Allergies Allergy/AdvReac Type Severity Reaction Status Date / Time No Known Allergies Allergy Verified 06/22/19 18:39 Physical Exam Vitals: Vital Signs Temp Pulse Pulse Resp BP BP 06/22/19 21:02 112 H 126/63 06/22/19 12:10 137 H 16 130/102 06/22/19 06:19 97.8 F 80 14 112/71 Intake and Output 06/22/19 06/22/19 06/22/19 06:59 14:59 22:59 Output Total 370 Balance -370 Output: Urine 370 Other: # Voids 1 Weight 42.2 kg Results CBC & Chem 7: 06/18/19 19:00 06/21/19 17:41
[2019-06-23] MEDS: VENLAFAXINE HCL ER 75 MG CAP PO SCH (09:36)
[2019-06-23] MEDS: lamoTRIgine 100 MG TAB PO SCH ×2 (09:36→20:57)
[2019-06-23] MEDS: SIMETHICONE 80 MG CHEWABLE PO PRN (09:39)
[2019-06-23] MEDS: busPIRone HCl 5 MG TAB PO SCH ×4 (11:15→20:58)
--- NOTE | 2019-06-23 11:49 | P.PN ---
Progress Note - Text Progress Note Date: 06/23/19 Interval History: Patient was seen wandering the hallways and was directable and agreeable to sp veronica with technical document writer in the office. Patient appeared to be calmer this morning with technical document writer and explained that she had a "meltdown" yesterday in the evening related to her dinner. She states that the kitchen did not send up the right food and she was having difficulties eating which she was given. She states that she cried and went back to her room and did not finish. She states that she is constantly thinking about food and how much anxiety it is giving her. He did claim that she spoke with a salt operator this morning and ordered different things on the menu and hopes that today will be better. She states that she also needs her Klonopin scheduled to be taken around mealtimes. She also claims that the BuSpar has been helping with her anxiety and request tablet 3 times a day. She states that her mood has been gradually improving on the current medications. Patient spoke about feeling irritable at times and "flipping a switch" and states that she got very upset speaking with her mother yesterday. She remains eating optimistic about getting into the eating disorders treatment program at [facility]. She states that she has been attempting to go to groups. She claims that she slept throughout the night. At this time patient denies any suicidal or homical ideations, intent or plan. Patient denies any auditory, visual hallucinations and denies any paranoia or delusions. Patient denies any side effects from the medications and has been compliant with meds. Mental Status Exam: General Appearance: Patient appears to be stated age is thin/frail, alert, more cooperative today, less irritable. Patient appears to have improving hygiene and grooming. Behavior: Patient is seated without any agitated behavior. More cooperative today Speech: Patient's speech is fluent and nonpressured. Mood/Affect: Patient reports their mood is depressed/anxious, improving mildly, affect is congruent Suicidality/Homicidality: Patient denies having any homicidal ideation intent or plan. Denies any suicidal ideations intent or plan Perceptions: Patient denies any visual hallucinations and denies any auditory hallucinations Though content/process: Goal oriented, logical. Preoccupied with her stressors and food. Memory and concentration: AOX3, grossly intact for the purposes of this session. Can spell "WORLD" backwards Judgment and insight: poor, mildly improving. Assessment Major depressive disorder, recurrent, severe, without psychotic features Anxiety disorder unspecified, rule out panic disorder Anorexia nervosa Personality disorder unspecified, likely cluster B traits. Cannabis abuse Nicotine dependence Plan: -Patient continues to meet criteria for inpatient psychiatric admission for symptom stabilization and safety. Patient has signed adult voluntary form however has not signed medication consent and was placed in patient's chart. -Medications: We'll continue with Effexor XR 75 mg daily for anxiety/mood. Continue with Lamictal 100 mg twice a day for mood stabilization/depression. Switched Klonopin 0.5 mg twice a day with meals when necessary for anxiety. Increased BuSpar 7.5 mg 3 times a day for anxiety. -When necessary Geodon for agitation/aggression. -Appreciate dietary/salt operator recommendations and follow-up, patient claims that she is planning on eating small quantities of fruit, soup and salad. -Patient's sodium improved to 4.8. Placed on a renal diet. -NRT - nicotine patch -SW on board for discharge planning. Encouraged the patient to participate in milieu. At this time health outreach worker assisting patient in getting into [facility] eating disorders treatment program. Likely discharge early next week.
[2019-06-23] MEDS: clonazePAM 0.5 MG TAB PO PRN ×2 (12:56→17:30)
[2019-06-24 06:47] VITALS: BP 115/64; PULSE 88; RESP 14; TEMP 97.6
[2019-06-24] MEDS: VENLAFAXINE HCL ER 75 MG CAP PO SCH (08:21)
[2019-06-24] MEDS: busPIRone HCl 5 MG TAB PO SCH (08:22)
[2019-06-24] MEDS: lamoTRIgine 100 MG TAB PO SCH (08:22)
[2019-06-24] MEDS: clonazePAM 0.5 MG TAB PO PRN (08:29)
[2019-06-24] MEDS: SIMETHICONE 80 MG CHEWABLE PO PRN (09:41)
--- NOTE | 2019-06-24 14:34 | P.DS ---
Providers Date of admission: 06/18/19 22:05 Expected date of discharge: 06/24/19 Attending physician: Junior Padilla MD Consults: 06/20/19 17:41 Consult Physician Routine Consulting Provider: Uziel Redmond Consult Reason/Comments: H&P Do you want consulting provider notified?: Yes Primary care physician: Kenneth Valenzuela - Discharge Diagnosis(es) (1) Major depressive disorder, recurrent severe without psychotic features Current Visit: Yes Status: Acute Priority: High (2) Anxiety disorder Current Visit: Yes Status: Acute Priority: Medium (3) Anorexia nervosa Current Visit: Yes Status: Acute Priority: Medium (4) Personality disorder Current Visit: Yes Status: Acute Priority: Medium (5) Cannabis abuse Current Visit: Yes Status: Acute Priority: Low (6) Nicotine dependence Current Visit: Yes Status: Acute Priority: Low Hospital Course: Admission HPI: Patient is a 29-year-old female with a history of anorexia and depression who currently lives in a house with her parents and works as a nanny has no kids and is . Patient presented to the hospital yesterday after an overdose on her medications. Patient [place] and states that she impulsively took her medications in a suicide attempt. Patient states that she fell asleep in the car and a surgical endoscopist found her and brought her in the hospital. She stated that she did not want to live anymore. She states that she's been noted with depression and feeling hopeless and overwhelmed at home. She states that she did feel like this since Boris. She was tearful and had a soft tone of voice and appeared to be guarded/evasive during the conversation. She spoke about "failing my parents" and stating that her sister has been "doing better than me". She feels that she is a big "screw up" in life and has been feeling hopeless. She states that she has been dealing with an eating disorder anorexia for 10 years now and states that "people don't understand me". She also spoke about having high anxiety. She states that she slept well last night. Patient also claimed that she's been caught stealing 2 times recently and had to go to court and felt that this may triggered her suicide attempt. She states that she has been compliant with her medications. Patient denies any suicidal or homicidal ideations intent or plan at this time. At this time patient denies any auditory or visual hallucinations. Patient denies any flight of ideas racing thoughts and increased in goal directed behavior. Patient admits to using marijuana daily and also smoking cigarettes daily. She states that she used to drink alcohol heavily however quit 3 years ago. Hospital course: Upon admission to the unit patient was initially depressed and anxious and irritable. Patient was however directable and agreeable to commence treatment. Patient got along well with other patients on the unit and followed unit protocol. Patient was initially impulsive and agitated at times however with ongoing treatment patient became more compliant with the medications and denied any side effects throughout hospital course. Patient was started on Effexor XR 75 mg daily for anxiety/mood, restarted on Lamictal 100 mg twice a day for mood stabilization/depression, decreased Klonopin to 0.5 mg daily when necessary for anxiety and started on BuSpar titrated up to a dose of 7.5 mg 3 times a day for anxiety. Patient spoke of her stressors and engaged in therapy both group and individual. Patient was also seen by medical team for history and physical exam. Patient initially was refusing to eat/drink due to her eating disorder however with time/treatment and consultation with brush material preparer patient was able to select her meals and consuming her food at mealtimes as best as she could. Patient did have an elevated potassium level 5.7 and was switched onto a renal diet and rechecked to be within normal limits. Throughout the course of the hospitalization patient gradually improved with regards to mood, anxiety, irritability/impulsivity, suicidality, sleep and became future oriented with improved insight and judgment. Patient spoke in depth about her fears of eating and spoke about using different coping skills to suppress her anxiety around mealtimes and was able to eat sufficiently on the unit and spoke more about her body weight/image and fears associated with it. On the day of discharge patient denied any suicidal or homicidal ideations intent or plan denied any auditory or visual hallucinations. Patient endorsed wanting to live for her niece and nephew and also her future/career. The patient denied any access to guns or weapons. Patient denied any paranoia and did not endorse any delusions. Patient does have a significant history of substance abuse and was counseled on abstaining from all substances including alcohol and marijuana. Patient was also counseled on the medications and need for regular compliance and was encouraged to follow- up with their outpatient appointment for mental health and also for primary care. Prior to discharge a family meeting will be arranged by social economist to answer any questions and ensure safety upon discharge. Mental status exam: General Appearance: Patient appears to be thin/frail, stated age is alert, pleasant, and cooperative and polite. Patient is in no acute distress and has improved hygiene and grooming Behavior: Patient is calmly seated without any agitated behavior. Speech: Patient's speech is fluent and nonpressured. Mood/Affect: Patient reports their mood is "much better", affect is congruent and euthymic. Suicidality/Homicidality: Patient denies having any suicidal or homicidal ideation intent or plan. Perceptions: Patient denies any auditory or visual hallucinations. Though content/process: There is no evidence of any delusional thought content and thought process is linear and goal-directed. More future oriented. Memory and concentration: AOX3, grossly intact for the purposes of this session. Can spell "WORLD" backwards correctly. Judgment and insight: improved with guarded prognosis Impression: Major depressive disorder, recurrent, severe without psychotic features Anxiety disorder unspecified Anorexia nervosa Personality disorder unspecified, likely cluster B traits Cannabis abuse Nicotine dependence Plan: -Continue with discharge today as patient has improved and stabilized psyc hiatrically and is not currently an imminent threat to herself and/or others. Patient will remain in a chronically elevated risk for self-harm due to her personality disorder and impulsivity. -Continue medications: Effexor XR 75 mg daily for anxiety/mood, Lamictal 100 mg twice a day for mood stabilization/depression, Klonopin 0.5 mg daily when necessary for anxiety, BuSpar 7.5 mg 3 times a day for anxiety. -Patient was counseled on the need for medication compliance and appropriate follow-up at mental health and also primary care for medical issues. Patient verbalized understanding and agreed. -Social work to arrange for and conduct family meeting to ensure safety upon discharge and answer any questions/concerns. aircraft lay out worker explained to mother about patient's impulsivity and that parents should be monitoring patient's medications closely given patient is at an elevated risk for suicide attempt or possible overdose in the future. Social work also to arrange for patients follow up appointments with Dr. Willingham for psychiatric care along with follow up with primary care provider. Patient is currently awaiting intake date likely early next week at [facility] eating disorders treatment program and patient and patient's mother are on board with this plan. -Patient counseled on abstaining from recreational drugs and marijuana and alcohol. Was informed/educated on the adverse effects on their physical and mental health. Patient verbally agreed and understood. -Patient was instructed to return to the hospital or seek immediate medical care if their psychiatric or medical symptoms do worsen or reoccur. Allergies Allergy/AdvReac Type Severity Reaction Status Date / Time No Known Allergies Allergy Verified 06/22/19 18:39 Laboratory Results WBC 8.6 k/uL (3.8-10.6) 06/18/19 19:00 RBC 4.96 m/uL (3.80-5.40) 06/18/19 19:00 Hgb 14.3 gm/dL (11.4-16.0) 06/18/19 19:00 Hct 44.4 % (34.0-46.0) 06/18/19 19:00 MCV 89.5 fL (80.0-100.0) 06/18/19 19: MCH 28.9 pg (25.0-35.0) 06/18/19 19:00 MCHC 32.3 g/dL (31.0-37.0) 06/18/19 19:00 RDW 14.2 % (11.5-15.5) 06/18/19 19:00 Plt Count 412 k/uL (150-450) 06/18/19 19:00 Neutrophils % 58 % 06/18/19 19:00 Lymphocytes % 34 % 06/18/19 19:00 Monocytes % 4 % 06/18/19 19:00 Eosinophils % 2 % 06/18/19 19:00 Basophils % 1 % 06/18/19 19:00 Neutrophils # 5.0 k/uL (1.3-7.7) 06/18/19 19:00 Lymphocytes # 2.9 k/uL (1.0-4.8) 06/18/19 19:00 Monocytes # 0.3 k/uL (0-1.0) 06/18/19 19:00 Eosinophils # 0.2 k/uL (0-0.7) 06/18/19 19:00 Basophils # 0.1 k/uL (0-0.2) 06/18/19 19:00 Sodium 138 mmol/L (137-145) 06/21/19 17:41 Potassium 4.8 mmol/L (3.5-5.1) 06/21/19 17:41 Chloride 104 mmol/L (98-107) 06/21/19 17:41 Carbon Dioxide 32 mmol/L (22-30) H 06/21/19 17:41 Anion Gap 2 mmol/L 06/21/19 17:41 BUN 11 mg/dL (7-17) 06/21/19 17:41 Creatinine 0.77 mg/dL (0.52-1.04) 06/21/19 17:41 Est GFR (CKD-EPI)AfAm >90 (>60 ml/min/1.73 sqM) 06/21/19 17:41 Est GFR (CKD-EPI)NonAf >90 (>60 ml/min/1.73 sqM) 06/21/19 17:41 Glucose 77 mg/dL (74-99) 06/21/19 17:[address] Glu mg/dL 100 06/18/19 19:00 Hemoglobin A1c 5.1 % (4.0-6.0) 06/18/19 19:00 Calcium 8.9 mg/dL (8.4-10.2) 06/21/19 17:41 Total Bilirubin 0.7 mg/dL (0.2-1.3) 06/21/19 08:41 AST 40 U/L (14-36) H 06/21/19 08:41 ALT 19 U/L (4-34) 06/21/19 08:41 Alkaline Phosphatase 90 U/L (38-126) 06/21/19 08:41 Total Protein 8.2 g/dL (6.3-8.2) 06/21/19 08:41 Albumin 4.4 g/dL (3.5-5.0) 06/21/19 08:41 Triglycerides 108 mg/dL (<150) 06/18/19 19:00 Cholesterol 233 mg/dL (<200) H 06/18/19 19:00 LDL Cholesterol, Calc 86 mg/dL (0-99) 06/18/19 19:00 HDL Cholesterol 125 mg/dL (40-60) H 06/18/19 19:00 TSH 1.740 mIU/L (0.465-4.680) 06/18/19 19:00 Urine Color Yellow 06/18/19 19: Urine Appearance Cloudy (Clear) H 06/18/19 19: Urine pH 7.0 (5.0-8.0) 06/18/19 19:06 Ur Specific Parsons 1.007 (1.001-1.035) 06/18/19 19: Urine Protein Negative (Negative) 06/18/19 19: Urine Glucose (UA) Negative (Negative) 06/18/19 19: Urine Ketones Negative (Negative) 06/18/19 19: Urine Blood Negative (Negative) 06/18/19 19: Urine Nitrite Negative (Negative) 06/18/19 19: Urine Bilirubin Negative (Negative) 06/18/19 19: Urine Urobilinogen <2.0 mg/dL (<2.0) 06/18/19 19:06 Ur Leukocyte Esterase Large (Negative) H 06/18/19 19:06 Urine RBC 2 /hpf (0-5) 06/18/19 19:06 Urine WBC 55 /hpf (0-5) H 06/18/19 19:06 Ur Squamous Epith Cells 10 /hpf (0-4) H 06/18/19 19:06 Urine Bacteria Many /hpf (None) H 06/18/19 19:06 Urine Mucus Occasional /hpf (None) H 06/18/19 19:06 Urine HCG, Qual Not Detected (Not Detectd) 06/22/19 19:50 Salicylates <1.0 mg/dL 06/18/19 19:00 Urine Opiates Screen Not Detected (NotDetected) 06/18/19 19:06 Ur Oxycodone Screen Not Detected (NotDetected) 06/18/19 19:06 Urine Methadone Screen Not Detected (NotDetected) 06/18/19 19:06 Ur Propoxyphene Screen Not Detected (NotDetected) 06/18/19 19:06 Acetaminophen <10.0 ug/mL 06/18/19 19:00 Ur Barbiturates Screen Not Detected (NotDetected) 06/18/19 19:06 U Tricyclic Antidepress Not Detected (NotDetected) 06/18/19 19:06 Ur Phencyclidine Scrn Not Detected (NotDetected) 06/18/19 19:06 Ur Amphetamines Screen Not Detected (NotDetected) 06/18/19 19:06 U Methamphetamines Scrn Not Detected (NotDetected) 06/18/19 19:06 U Benzodiazepines Scrn Not Detected (NotDetected) 06/18/19 19:06 Urine Cocaine Screen Not Detected (NotDetected) 06/18/19 19:06 U Marijuana (THC) Screen Detected (NotDetected) H 06/18/19 19:06 Serum Alcohol <10 mg/dL 06/18/19 19:00 Vital Signs Temp 97.6 F 06/24/19 06:28 Pulse 88 06/24/19 06:28 Resp 14 06/24/19 06:28 BP 115/64 06/24/19 06:28 Pulse Ox 97 06/21/19 06:21 Intake & Output 06/23/19 06/24/19 06/24/19 18:59 06:59 18:59 Weight 42.2 kg Patient Condition at Discharge: Stable Plan - Discharge Summary Discharge Rx Participant: No New Discharge Prescriptions: New busPIRone HCL [Buspar] 7.5 mg PO TID 30 Days tab Venlafaxine HCl ER [Effexor XR] 75 mg PO DAILY 30 Days cap.er.24h clonazePAM [KlonoPIN] 0.5 mg PO DAILY PRN 30 Days tab PRN Reason: Anxiety lamoTRIgine [LaMICtal] 100 mg PO BID 30 Days tab Nicotine Polacrilex [Nicorette] 2 mg BUCCAL Q4H PRN 14 Days gum PRN Reason: Nicotine Cravings Discharge Medication List Nicotine Polacrilex [Nicorette] 2 mg BUCCAL Q4H PRN 14 Days gum 06/24/19 [Rx] Venlafaxine HCl ER [Effexor XR] 75 mg PO DAILY 30 Days cap.er.24h 06/24/19 [Rx] busPIRone HCL [Buspar] 7.5 mg PO TID 30 Days tab 06/24/19 [Rx] clonazePAM [KlonoPIN] 0.5 mg PO DAILY PRN 30 Days tab 06/24/19 [Rx] lamoTRIgine [LaMICtal] 100 mg PO BID 30 Days tab 06/24/19 [Rx] Follow up Appointment(s)/Referral(s): intake,intake [Other] - 1-2 Days Kenneth Valenzuela DO [Primary Care Provider] - 1-2 days Patient Instructions/Handouts: Depression (DC) Activity/Diet/Wound Care/Special Instructions: Activity and diet as tolerated. Avoid the use of street drugs and alcohol. Take all medications as prescribed. When you are in need of refills on your medications please contact your medical provider and/or outpatient psychiatrist to have this done. Please go to scheduled outpatient appointment for aftercare treatment. If symptoms return or become worse, call the crisis line at and/or go to the nearest emergency room for evaluation. Discharge Disposition: HOME SELF-CARE
== END 2019-06-24 15:25 | disposition home or self-care (01) | DRG 885 ==
LOC: EC 18:18 → 3MHU 22:05
PROVIDERS: ADMIT Psychiatry & Neurology Psychiatry; ATTEND Psychiatry & Neurology Psychiatry
DX: F33.2 Major depressive disorder, recurrent severe without psychotic features (principal); E44.1 Mild protein-calorie malnutrition; F50.00 Anorexia nervosa, unspecified; R45.851 Suicidal ideations; F12.10 Cannabis abuse, uncomplicated; F17.210 Nicotine dependence, cigarettes, uncomplicated; F41.0 Panic disorder [episodic paroxysmal anxiety]; F60.9 Personality disorder, unspecified; Z79.899 Other long term (current) drug therapy; Z81.8 Family history of other mental and behavioral disorders; Z86.59 Personal history of other mental and behavioral disorders
CPT/HCPCS: 36415; 80048; 80053; 80061; 80306; 80320; 80329; 81001; 81025; 82075; 83036; 83520; 84443; 85025; 87086; 93005; 96361; 96374; 99285

== ENCOUNTER 2021-10-03 08:27 | Emergency (ER) | payer OTHER ==
[2021-10-03 08:33] VITALS: BP 137/83; PULSE 70; RESP 18; TEMP 97.8
--- NOTE | 2021-10-03 09:17 | ED ---
General Adult HPI - General Chief complaint: Recheck/Abnormal Lab/Rx Stated complaint: Mental health Time Seen by Provider: 10/03/21 08:28 Source: patient, RN notes reviewed Mode of arrival: ambulatory Limitations: no limitations - History of Present Illness Initial comments: 31-year-old female presents emergency Department with chief complaint of needing medication refill. Patient states she's in between psychiatrists and states that she is in a lot of her medications tomorrow. Patient states that she is very stable she has been suicidal or homicidal. Patient denies any physical complaints. Patient states she just needs medications before she runs out. - Related Data Home Medications Medication Instructions Recorded Confirmed Drospir/Ethi 3/0.2mg 1 tab PO DAILY 10/03/21 10/03/21 Levothyroxine Sodium [Synthroid] 75 mcg PO DAILY 10/03/21 10/03/21 Previous Rx's Medication Instructions Recorded clonazePAM [KlonoPIN] 0.5 mg PO DAILY PRN 30 Days tab 06/24/19 Venlafaxine HCl ER [Effexor Xr] 37.5 mg PO DAILY #30 cap 10/03/21 Venlafaxine HCl ER [Effexor Xr] 150 mg PO DAILY #30 cap 10/03/21 clonazePAM [KlonoPIN] 0.5 mg PO TID 3 Days #9 tablet 10/03/21 lamoTRIgine [LaMICtal] 150 mg PO BID #60 tab 10/03/21 traZODone HCL 100 mg PO HS #30 tab 10/03/21 Allergies Allergy/AdvReac Type Severity Reaction Status Date / Time No Known Allergies Allergy Verified 10/03/21 09:02 Review of Systems ROS Statement: Those systems with pertinent positive or pertinent negative responses have been documented in the HPI. ROS Other: All systems not noted in ROS Statement are negative. Past Medical History Additional Past Medical History / Comment(s): alcoholism, anorexia Past Surgical History: No Surgical Hx Reported Past Psychological History: Anxiety, Bipolar, Depression Past Alcohol Use History: None Reported Past Drug Use History: Marijuana General Exam Limitations: no limitations General appearance: alert, in no apparent distress Head exam: Present: atraumatic, normocephalic, normal inspection Eye exam: Present: normal appearance, PERRL, EOMI. Absent: scleral icterus, conjunctival injection, periorbital swelling ENT exam: Present: normal exam, normal oropharynx, mucous membranes moist Neck exam: Present: normal inspection, full ROM. Absent: tenderness, meningismus, lymphadenopathy Respiratory exam: Present: normal lung sounds bilaterally. Absent: respiratory distress, wheezes, rales, rhonchi, stridor Cardiovascular Exam: Present: regular rate, normal rhythm, normal heart sounds. Absent: systolic murmur, diastolic murmur, rubs, gallop, clicks Psychiatric exam: Present: normal affect, normal mood Course Vital Signs 10/03/21 08:29 Temperature 97.8 F Pulse Rate 70 Respiratory 18 Rate Blood Pressure 137/83 O2 Sat by Pulse 100 Oximetry Medical Decision Making - Medical Decision Making Patient's medications are refilled. Patient will follow-up with psychiatrist, list was provided the patient. Disposition Clinical Impression: Encounter for medication refill Disposition: HOME SELF-CARE Condition: Stable Additional Instructions: Please return to the Emergency Department if symptoms worsen or any other con cerns. Prescriptions: Venlafaxine HCl ER [Effexor Xr] 37.5 mg PO DAILY #30 cap Venlafaxine HCl ER [Effexor Xr] 150 mg PO DAILY #30 cap clonazePAM [KlonoPIN] 0.5 mg PO TID 3 Days #9 tablet lamoTRIgine [LaMICtal] 150 mg PO BID #60 tab traZODone HCL 100 mg PO HS #30 tab Is patient prescribed a controlled substance at d/c from ED?: No Referrals: Kenneth Valenzuela DO [Primary Care Provider] - 1-2 days Time of Disposition: 09:16
== END 2021-10-03 09:21 | disposition home or self-care (01) ==
LOC: EC 08:27
DX: Z76.0 Encounter for issue of repeat prescription (principal)

== ENCOUNTER → 2023-03-24 | Outpatient (CLI) | payer OTHER ==
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
== END | disposition home or self-care (01) ==
LOC: RADMRIMAIN 17:23
PROVIDERS: ATTEND Orthopaedic Surgery Orthopaedic Surgery of the Spine
DX: S46.912A Strain of unspecified muscle, fascia and tendon at shoulder and upper arm level, left arm, initial encounter (principal); S16.1XXA Strain of muscle, fascia and tendon at neck level, initial encounter; M75.42 Impingement syndrome of left shoulder; M79.12 Myalgia of auxiliary muscles, head and neck; M25.78 Osteophyte, vertebrae; M50.10 Cervical disc disorder with radiculopathy, unspecified cervical region; M47.22 Other spondylosis with radiculopathy, cervical region; V89.2XXA Person injured in unspecified motor-vehicle accident, traffic, initial encounter
CPT/HCPCS: 72141

== ENCOUNTER → 2024-01-15 | Outpatient (CLI) | payer OTHER ==
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
--- NOTE | 2024-01-26 07:59 | FL ---
EXAMINATION TYPE: FL arthrogram shoulder LT fluoroscopic-guided arthrogram injection. DATE OF EXAM: 01/15/2024 HISTORY: M25.512 PROCEDURES: TECHNIQUE: The procedure, risks, and alternatives, were discussed with the patient, who requested that marvin toribio The consent form was signed, and teach-back occurred. The site/side of the procedure was marked with a line with participation by the patient. The accompan ya paperwork was verified for consistency. A directed history and physical exam was performed prior to the procedure. Medication reconciliation was performed by ancillary personnel. A critical pause was performed with assisting personnel just pr ior to the procedure, and the patient's identity was confirmed using 2 identifiers. Imaging guidance was utilized to select the precise skin entry point just prior to the procedure. The skin was prepped and draped in the usual sterile fashion and local 1% lidocaine anesthesia was in stilled. Under fluoroscopic guidance, a 22 gauge spinal needle was introduced into the left gleno humeral joint. Appropriate needle tip position was confirmed after a small amount of contrast injecti on. Approximately 10 ml of a mixture of Omnipaque 240 iodinated contrast and gadolinium was injected into the glenohumeral joint. The needle was then removed. The patient tolerated the procedure well. A post-procedure note was placed into the medical record. There was no immediate complication. After the procedure, the patient's condition was unchanged. Estimated blood loss was minimal. IMPRESSION: Technically successful left shoulder arthrogram injection for MRI. No immediate complication. [facility], , 01/26/2024 7:56 AM
== END | disposition home or self-care (01) ==
LOC: RADFLMAIN 12:58
PROVIDERS: ATTEND Family Medicine
DX: M75.102 Unspecified rotator cuff tear or rupture of left shoulder, not specified as traumatic (principal)

== ENCOUNTER 2024-06-01 10:11 | Emergency (ER) | payer OTHER ==
[2024-06-01 10:15] VITALS: TEMP 97.6
--- NOTE | 2024-06-01 10:31 | ED ---
Chest Pain HPI - General Chief Complaint: Chest Pain Stated Complaint: chest pain,vomiting Time Seen by Provider: 06/01/24 10:30 Source: patient, RN notes reviewed Mode of arrival: ambulatory Limitations: no limitations - History of Present Illness Initial Comments: 34-year-old female presenting to the ER for chest pain x 2.5 hours. Describes a sharp, stabbing pain in the center of the chest that radiates to the right neck. Endorses associated shortness of breath and vomiting. States this pain began after taking her daily medication of Lamictal and Effexor. She states the pain feels like bad heartburn. She has never had this pain before. She was ill with influenza about 3 weeks ago and has had a lingering cough since then. Denies abdominal pain or chance of . Denies cardiac history. - Related Data Home Medications Medication Instructions Recorded Confirmed Albuterol Sulfate [Ventolin HFA] 2 puff INHALATION RT-Q4H PRN 06/01/24 06/01/24 Atomoxetine HCl [Strattera] 100 mg PO DAILY 06/01/24 06/01/24 busPIRone HCL 15 mg PO TID 06/01/24 06/01/24 traZODone HCL [Desyrel] 50 mg PO HS 06/01/24 06/01/24 Previous Rx's Medication Instructions Recorded Venlafaxine HCl ER [Effexor Xr] 37.5 mg PO DAILY #30 cap 10/03/21 Venlafaxine HCl ER [Effexor Xr] 150 mg PO DAILY #30 cap 10/03/21 lamoTRIgine [LaMICtal] 150 mg PO BID #60 tab 10/03/21 Allergies Allergy/AdvReac Type Severity Reaction Status Date / Time oseltamivir [From Tamiflu] Allergy Rash/Hives Verified 06/01/24 11:10 Review of Systems ROS Statement: Those systems with pertinent positive or pertinent negative responses have been documented in the HPI. ROS Other: All systems not noted in ROS Statement are negative. EKG Findings - EKG Results: EKG: interpreted by YE (Normal sinus rhythm with no ST changes. Ventricular rate 80 bpm, IL interval 156, QRS duration 90, QT/QTc 359/395) Past Medical History Additional Past Medical History / Comment(s): alcoholism, anorexia History of Any Multi-Drug Resistant Organisms: None Reported Past Surgical History: No Surgical Hx Reported Past Psychological History: Anxiety, Bipolar, Depression Smoking Status: Vaper Past Alcohol Use History: None Reported Past Drug Use History: Marijuana General Exam Limitations: no limitations General appearance: alert, in no apparent distress Head exam: Present: atraumatic, normocephalic, normal inspection Eye exam: Present: normal appearance, PERRL, EOMI. Absent: scleral icterus, conjunctival injection, periorbital swelling ENT exam: Present: normal exam, normal oropharynx, mucous membranes moist Neck exam: Present: normal inspection. Absent: tenderness, meningismus, lymphadenopathy Respiratory exam: Present: normal lung sounds bilaterally. Absent: respiratory distress, wheezes, rales, rhonchi, stridor, chest wall tenderness Cardiovascular Exam: Present: regular rate, normal rhythm, normal heart sounds. Absent: systolic murmur, diastolic murmur, rubs, gallop, clicks GI/Abdominal exam: Present: soft, normal bowel sounds. Absent: distended, tenderness, guarding, rebound, rigid Neurological exam: Present: alert, oriented X3 Psychiatric exam: Present: normal affect, normal mood Skin exam: Present: warm, dry, intact, normal color. Absent: rash Course Vital Signs 06/01/24 06/01/24 06/01/24 10:12 11:15 13:13 Temperature 97.6 F Pulse Rate 89 86 91 Respiratory 20 18 18 Rate Blood Pressure 125/85 114/84 125/76 O2 Sat by Pulse 100 94 L 95 Oximetry Chest Pain MDM - MDM Was pt. sent in by a medical professional or institution (, PA, SPECIAL EVENTS PLANNER, urgent care, hospital, or fdc...) When possible be specific @ -No Did you speak to anyone other than the patient for history (EMS, parent, family, police, friend...)? What history was obtained from this source @ -No Did you review nursing and triage notes (agree or disagree)? Why? @ -I reviewed and agree with nursing and triage notes Were old charts reviewed (outside hosp., previous admission, EMS record, old EKG, old radiological studies, urgent care reports/EKG's, fdc records)? Report findings @ -No old charts were reviewed Differential Diagnosis (chest pain, altered mental status, abdominal pain women, abdominal pain men, vaginal bleeding, weakness, fever, dyspnea, syncope, headache, dizziness, GI bleed, back pain, seizure, CVA, palpatations, mental health, musculoskeletal)? @ -Differential Chest Pain: Stable Angina, Unstable Angina, STEMI, NSTEMI Aortic Dissection, Pneumothorax, Musculoskeletal, Esophageal Spasm GERD, Cholecystitis, Pancreatitis, Zoster, this is not meant to be an all-inclusive list. EKG interpreted by me (3pts min.). @ -As above X-rays interpreted by me (1pt min.). @ -Chest x-ray reveals no acute process CT interpreted by me (1pt min.). @ -CT neck angio chest reveals no evidence of pulmonary embolism. Abnormal scattered lung densities nonspecific could represent a chronic or acute inflammatory process U/S interpreted by me (1pt. min.). @ -None done What testing was considered but not performed or refused? (CT, X-rays, U/S, labs)? Why? @ -None What meds were considered but not given or refused? Why? @ -None Did you discuss the management of the patient with other professionals (professionals i.e. , PA, SPECIAL EVENTS PLANNER, lab, RT, psych nurse, social worker palliative care, portable sawyer, teacher, licensed loan officer assistant, nurse outreach case manager)? Give summary @ -No Was smoking cessation discussed for >3mins.? @ -No Was critical care preformed (if so, how long)? @ -No Were there social determinants of health that impacted care today? How? (Homelessness, low income, unemployed, alcoholism, drug addiction, transportation, low edu. Level, literacy, decrease access to med. care, prison, rehab)? @ -No Was there de-escalation of care discussed even if they declined (Discuss DNR or withdrawal of care, Hospice)? DNR status @ -No What co-morbidities impacted this encounter? (DM, HTN, Smoking, COPD, CAD, Cancer, CVA, ARF, Chemo, Hep., AIDS, mental health diagnosis, sleep apnea, morbid obesity)? @ -None Was patient admitted / discharged? Hospital course, mention meds given and route, prescriptions, significant lab abnormalities, going to OR and other pertinent info. @ -Discharge. 34-year-old female presenting for chest pain. Heart score is 2. Vital signs within acceptable limits. EKG reveals normal sinus rhythm with no ST changes. Patient was provided with Zofran and GI cocktail. Lab work including CBC, CMP, D-dimer, troponin unremarkable for elevated D-dimer of 1.71. Urine negative. CT angio of chest that obtained due to elevated D- dimer which revealed no evidence of PE. Discussed all results with patient. Patient reports complete resolution of symptoms after GI cocktail. I highly suspect symptoms are due to GERD flareup at this time. Appropriate return precautions and follow-up care discussed. Case was discussed with ED attending Dr. France. Undiagnosed new problem with uncertain prognosis? @ -No Drug Therapy requiring intensive monitoring for toxicity (Heparin, Nitro, Insulin, Cardizem)? @ -No Were any procedures done? @ -No Diagnosis/symptom? @ -GERD, chest pain Acute, or Chronic, or Acute on Chronic? @ -Acute Uncomplicated (without systemic symptoms) or Complicated (systemic symptoms)? @ -Uncomplicated Side effects of treatment? @ -No Exacerbation, Progression, or Severe Exacerbation? @ -No Poses a threat to life or bodily function? How? (Chest pain, [place], [place], pneumonia, PE, COPD, DKA, ARF, appy, cholecystitis, CVA, Diverticulitis, Homicidal, Suicidal, threat to staff... and all critical care pts) @ -Unlikely at this time Disposition Clinical Impression: GERD (gastroesophageal reflux disease), Chest pain Disposition: HOME SELF-CARE Condition: Stable Instructions (If sedation given, give patient instructions): GERD (Gastroesophageal Reflux Disease) (ED) Additional Instructions: Please return to the Emergency Department if symptoms worsen or any other concerns. Is patient prescribed a controlled substance at d/c from ED?: No Referrals: Kenneth Valenzuela DO [Primary Care Provider] - 1-2 days Time of Disposition: 13:37
[2024-06-01] MEDS: LIDOCAINE VISCOUS 2% 15 ML CUP PO ONE (11:19)
[2024-06-01] MEDS: MAG HYDROX/AL HYDROX/SIMETH 30 ML CUP PO STA (11:19)
[2024-06-01] MEDS: PHENOBARB/HYOSCY/ATROPINE/SCOP 16.2 MG TAB PO STA (11:21)
[2024-06-01] MEDS: SODIUM CHLORIDE 0.9% 1,000 ML IV STA (11:22)
[2024-06-01] MEDS: ONDANSETRON 4 MG/2 ML VIAL IVP STA (11:23)
[2024-06-01 11:38] LABS: ALT 34 U/L (4-34); AST 36 U/L (14-36); African American GFR (CKD) >90 (>60 ml/min/1.73 sqM); Albumin 4.2 g/dL (3.5-5.0); Alkaline Phosphatase 69 U/L (38-126); Anion Gap 6 mmol/L; Blood Urea Nitrogen 25 mg/dL (7-17); Calcium 9.2 mg/dL (8.4-10.2); Carbon Dioxide 27 mmol/L (22-30); Chloride 103 mmol/L (98-107); Glucose 94 mg/dL (74-99); Non-African American GFR(CKD) 80 (>60 ml/min/1.73 sqM); Sodium 136 mmol/L (137-145); Total Bilirubin 0.4 mg/dL (0.2-1.3); Total Protein 7.2 g/dL (6.3-8.2)
[2024-06-01 11:44] LABS: Basophils # (A) 0.1 k/uL (0-0.2); Basophils % (A) 1 %; Eosinophils # (A) 0.1 k/uL (0-0.7); Eosinophils % (A) 1 %; HCT 42.4 % (34.0-46.0); HGB 14.1 gm/dL (11.4-16.0); Lymphocytes # (A) 1.4 k/uL (1.0-4.8); Lymphocytes % (A) 20 %; MCH 31.1 pg (25.0-35.0); MCHC 33.2 g/dL (31.0-37.0); MCV 93.7 fL (80.0-100.0); Mean Platelet Volume 6.6; Monocytes # (A) 0.3 k/uL (0-1.0); Monocytes % (A) 4 %; Neutrophils # (A) 4.9 k/uL (1.3-7.7); Neutrophils % (A) 72 %; Platelet Count 274 k/uL (150-450); RBC 4.52 m/uL (3.80-5.40); RDW 13.5 % (11.5-15.5); WBC 6.8 k/uL (3.8-10.6)
--- NOTE | 2024-06-01 11:45 | XR ---
EXAMINATION TYPE: XR chest 2V DATE OF EXAM: 06/01/2024 CLINICAL HISTORY: Chest pain TECHNIQUE: Frontal and lateral views of the chest are obtained. COMPARISON: None FINDINGS: Overlying EKG leads are present. There is no focal air space opacity, pleural effusion, or pneumothorax seen. The cardiac silhouette size is within normal limits. The osseous structures ar e intact. IMPRESSION: No acute process. [facility], , 06/01/2024 11:43 AM
[2024-06-01 13:13] VITALS: RESP 18
[2024-06-01 13:14] VITALS: PULSE 91
--- NOTE | 2024-06-01 13:16 | CT ---
EXAMINATION TYPE: CT angio chest DATE OF EXAM: 06/01/2024 COMPARISON: None CLINICAL INDICATION: Female, 34 years old with history of chest pain, elevated D-dimer; PHH, chest pa in, elevated D-dimer TECHNIQUE: CTA scan of the thorax is performed with IV Contrast, patient injected with 61ml mL of Isovue 300, pu lmonary embolism protocol. MIP images are created and reviewed. CT DLP: 210.[address] CTDI: mGy Automated exposure control for dose reduction was used. FINDINGS: LUNGS: There are multiple scattered small focal groundglass opacities in both lungs right greater jazzy n left. There is a focal area of tree-in-bud/reticular nodular density in the right middle lobe. The finding suggests a nonspecific and could represent a chronic or acute inflammatory process such as pn eum[place]. There is no pleural effusion or pneumothorax. MEDIASTINUM: There is satisfactory enhancement of the pulmonary artery and its branches, there is no CT evidence for pulmonary embolism. There are no greater than 1 cm hilar or mediastinal lymph nodes. No pericardial effusion is seen. Limited scanning through the upper abdomen reveals no gross abnormality. No focal osseous lesions are seen. IMPRESSION: 1. NO EVIDENCE OF PULMONARY EMBOLISM. 2. ABNORMAL SCATTERED LUNG DENSITIES DESCRIBED ABOVE WHICH ARE NONSPECIFIC AND COULD REPRESENT A C HRONIC OR ACUTE INFLAMMATORY PROCESS SUCH PNEUMONIA IN SHORT-TERM FOLLOW-UP IS RECOMMENDED. [facility], , 06/01/2024 1:13 PM
[2024-06-01 13:47] VITALS: BP 115/80
== END 2024-06-01 13:47 | disposition home or self-care (01) ==
LOC: EC 10:11
DX: R07.9 Chest pain, unspecified (principal); K21.9 Gastro-esophageal reflux disease without esophagitis; F17.290 Nicotine dependence, other tobacco product, uncomplicated
CPT/HCPCS: 36415; 93005; 85379; 80053; 84484; 85025; 81025; 71046; 71275; 99285; 96374; 96361; J2405; Q9967